=== PATIENT | female | born 1995 | race African-American/Black ===

== ENCOUNTER 2019-05-23 12:20 | Emergency (ER) | payer MEDICAID ==
[~2019-05-23] VITALS: Ht 167.6 cm; Wt 92.1 kg
[2019-05-23 12:42] VITALS: BP 116/65
[2019-05-23] MEDS ORDERED: GOLYTELY 4L KIT PO ONE (15:00)
== END 2019-05-23 15:07 | disposition home or self-care (01) ==
LOC: ER 12:20
DX: K59.00 Constipation, unspecified (principal); F12.90 Cannabis use, unspecified, uncomplicated; Z88.8 Allergy status to other drugs, medicaments and biological substances
CPT/HCPCS: 74018

== ENCOUNTER 2019-05-24 08:24 | Emergency (ER) | payer OTHER, MEDICAID ==
[~2019-05-24] VITALS: Ht 167.6 cm; Wt 90.7 kg
[2019-05-24 09:10] VITALS: BP 126/78
== END 2019-05-24 11:02 | disposition home or self-care (01) ==
LOC: ER 08:24
DX: K59.00 Constipation, unspecified (principal); K56.7 Ileus, unspecified; F12.10 Cannabis abuse, uncomplicated; Z88.8 Allergy status to other drugs, medicaments and biological substances
CPT/HCPCS: 74176

== ENCOUNTER 2019-06-13 10:24 | Emergency (ER) | payer OTHER, MEDICAID ==
[~2019-06-13] VITALS: Ht 167.6 cm; Wt 93.0 kg
[2019-06-13 10:46] VITALS: BP 101/68
[2019-06-13] MEDS ORDERED: PHENAZOPYRIDINE HCL 100 MG TAB PO ONE (11:30)
[2019-06-13] MEDS ORDERED: cefTRIAXone SOD 1,000 MG VL IM ONE (11:30)
== END 2019-06-13 11:58 | disposition home or self-care (01) ==
LOC: ER 10:25
DX: N39.0 Urinary tract infection, site not specified (principal); F12.10 Cannabis abuse, uncomplicated; Z88.8 Allergy status to other drugs, medicaments and biological substances
CPT/HCPCS: 96372; 99283; J0696